=== PATIENT | male | born 1955 | race Caucasian/White ===

== ENCOUNTER 2018-02-05 19:24 | Emergency (ER) | payer OTHER ==
[~2018-02-05] VITALS: Ht 175.3 cm; Wt 56.7 kg
[2018-02-05] MEDS ORDERED: HYDROmorphone 1mg/ml Carpuject IVP ONE ×2 (19:30→21:45)
[2018-02-05] MEDS ORDERED: Isovue-370 150ml vial INJ PRN (19:30)
--- NOTE | 2018-02-05 19:31 | Emergency Room Report ---
History of Present Illness General Chief Complaint: Chest Pain Source: Patient, EMS Present Illness HPI This is 63-year-old male with a history esophageal cancer. He is status post chemotherapy and radiation. He presents with sternal chest pain ongoing for last 4 days. Sharp in nature. Worse with inspiration. Better with rest. No cough. Subjective fever and chills. Pain is 9 out of 10. No relief with his morphine. No cough. No congestion. No diaphoresis or exertional component. Allergies: Coded Allergies: No Known Allergies (Unverified , 02/05/18) Patient History Past Medical History: see triage record, old chart reviewed Past Surgical History: other Pertinent Family History: none Social History: Reports: smoking Immunizations: other Reviewed Nursing Documentation: PMH: Agreed; PSxH: Agreed Review of Systems Eye: Denies: eye pain, blurred vision ENT: Denies: ear pain, nose congestion, throat swelling Respiratory: Denies: cough, shortness of breath Cardiovascular: Reports: chest pain; Denies: palpitations Gastrointestinal: Denies: abdominal pain, diarrhea, nausea, vomiting Musculoskeletal: Denies: back pain, joint pain Skin: Denies: rash Neurological: Denies: headache, numbness Endocrine: Denies: increased thirst, increased urine Hematologic/Lymphatic: Denies: easy bruising All Other Systems: negative except mentioned in HPI Physical Exam Vital Signs Date Time Temp Pulse Resp B/P (MAP) Pulse Ox O2 Delivery O2 Flow Rate FiO2 02/05/18 19:22 99.0 74 18 118/73 100 Room Air vitals unremarkable Sp02 EP Interpretation: reviewed, normal General Appearance: no apparent distress, alert, cachetic, Chronically Ill Head: normocephalic, atraumatic Eyes: bilateral eye PERRL, bilateral eye EOMI ENT: hearing grossly normal, normal pharynx Neck: full range of motion, supple, no meningismus Respiratory: chest non-tender, lungs clear, normal breath sounds, other - Pain with palpation of sternum Cardiovascular #1: regular rate, rhythm, no murmur Gastrointestinal: normal bowel sounds, non tender, no mass, no organomegaly, no bruit, non-distended Musculoskeletal: back normal, gait/station normal, normal range of motion Psychiatric: mood/affect normal Skin: warm/dry Medical Decision Making Diagnostic Impression: Primary Impression: Chest pain Qualified Codes: R07.9 - Chest pain, unspecified Additional Impression: Esophagitis, acute ER Course Patient presents with chest pain. This is more of an esophagitis. Troponin negative. EKG unremarkable. Lungs show no evidence of any PE or infection. He does have fibrosis and emphysema. There is irregular thickening of the distal esophagus with surrounding infiltration. There is debris in the mildly distended esophagus. Patient be admitted versus transfer. I discussed the case with who accepted pt for transfer to [facility]. Lab Results Impression labs unremarkable EKG Diagnostic Results Rate: normal Rhythm: NSR ST Segments: no acute changes Rhythm Strip Diag. Results Rhythm Strip Time: 19:31 EP Interpretation: yes Rate: 70 Rhythm: NSR, no PVC's, no ectopy Last Vital Signs Date Time Temp Pulse Resp B/P (MAP) Pulse Ox O2 Delivery O2 Flow Rate FiO2 02/05/18 19:22 99.0 74 18 118/73 100 Room Air Status: improved Disposition: [facility] Condition: Stable Jayy Morrison MD Feb 05, 2018 19:31
[2018-02-05 20:03] VITALS: BP 124/73
[2018-02-05 20:05] LABS: BASOPHILS % (AUTO) 1.9 % (0.0-2.0); HEMATOCRIT 26.8 % (42.0-52.0); LYMPHOCYTES % (AUTO) 10.1 % (20.0-45.0); MEAN CORPUSCULAR VOLUME 83 FL (80-99); MONOCYTES % (AUTO) 11.4 % (1.0-10.0); NEUTROPHILS % (AUTO) 74.6 % (45.0-75.0); PLATELET COUNT 203 K/UL (150-450); RED BLOOD COUNT 3.23 M/UL (4.70-6.10); RED CELL DISTRIBUTION WIDTH 16.8 % (11.6-14.8); WHITE BLOOD COUNT 4.4 K/UL (4.8-10.8)
--- NOTE | 2018-02-05 20:13 | Diagnostic Imaging Report ---
EXAM: XR Chest, 1 View CLINICAL HISTORY: CP TECHNIQUE: Frontal view of the chest. COMPARISON: No relevant prior studies available. FINDINGS: Lungs: Bilateral pulmonary opacities. Pleural space: Unremarkable. No pneumothorax. Heart: Unremarkable. No cardiomegaly. Mediastinum: Unremarkable. Bones/joints: Probable old right rib fracture. IMPRESSION: Bilateral pulmonary opacities. Could be from edema or pneumonia in the proper clinical setting. There's a broader differential.
[2018-02-05 20:20] LABS: APPEARANCE,URINE CLEAR; BILIRUBIN, URINE NEGATIVE (NEGATIVE); COLOR,URINE PALE YELLOW; GLUCOSE, URINE (UA) NEGATIVE (NEGATIVE); KETONES,URINE NEGATIVE (NEGATIVE); LEUKOCYTE ESTERASE ,URINE NEGATIVE (NEGATIVE); NITRITE,URINE NEGATIVE (NEGATIVE); PH,URINE 7 (4.5-8.0); PROTEIN,URINE NEGATIVE (NEGATIVE); UROBILINOGEN,URINE NORMAL MG/DL (0.0-1.0)
[2018-02-05 20:22] LABS: ANION GAP 9 mmol/L (5-15); BLOOD UREA NITROGEN 19 mg/dL (7-18); CALCIUM 9.3 MG/DL (8.5-10.1); CARBON DIOXIDE 25 MMOL/L (21-32); CHLORIDE 98 MMOL/L (98-107); CREATININE 0.9 MG/DL (0.55-1.30); POTASSIUM 3.8 MMOL/L (3.5-5.1); SODIUM 132 MMOL/L (136-145)
[2018-02-05] MEDS ORDERED: ZOFRAN4 M3 ORAL (20:29)
[2018-02-05] MEDS ORDERED: PROTONIX40 MG ORAL (20:29)
[2018-02-05] MEDS ORDERED: BENADRYL25 MG ORAL (20:29)
[2018-02-05] MEDS ORDERED: ACETAMINOP160 MG/51 ORAL (20:29)
[2018-02-05] MEDS ORDERED: CARVEDILOL3.125 MG ORAL (20:29)
[2018-02-05] MEDS ORDERED: LYRICA75 M1 ORAL (20:29)
[2018-02-05] MEDS ORDERED: COLACE100 MG ORAL (20:29)
[2018-02-05] MEDS ORDERED: MULTIVITAMINS1 EAC2 ORAL (20:29)
[2018-02-05] MEDS ORDERED: NORCO 10-325 T1 EACH ORAL (20:29)
[2018-02-05] MEDS ORDERED: FUROSEMIDE40 MG ORAL (20:29)
[2018-02-05] MEDS ORDERED: MILK OF MA400 MG/51 ORAL (20:29)
[2018-02-05] MEDS ORDERED: mylanta (20:29)
[2018-02-05] MEDS ORDERED: KEPPRA1000 MG ORAL (20:29)
[2018-02-05] MEDS ORDERED: VITAMIN B-1100 MG ORAL (20:29)
[2018-02-05 20:30] VITALS: BP 138/72
[2018-02-05 20:35] LABS: ALANINE AMINOTRANSFERASE 28 U/L (12-78); ALBUMIN 2.7 G/DL (3.4-5.0); ALBUMIN/GLOBULIN RATIO 0.5 (1.0-2.7); ALKALINE PHOSPHATASE 145 U/L (46-116); ASPARTATE AMINO TRANSFERASE 30 U/L (15-37); BILIRUBIN,TOTAL 0.4 MG/DL (0.2-1.0); CKMB 4.3 NG/ML (0.0-3.6); CREATINE KINASE 34 U/L (26-308)
--- NOTE | 2018-02-05 21:15 | Diagnostic Imaging Report ---
EXAM: CT Chest With Intravenous Contrast CLINICAL HISTORY: CP TECHNIQUE: Axial computed tomography images of the chest with intravenous contrast. CTDI is 0.17 + 12.62 + 138.85 + 19.42 mGy and DLP is 810 mGy-cm. One or more of the following dose reduction techniques were used: automated exposure control, adjustment of the mA and/or kV according to patient size, use of iterative reconstruction technique. MIP reconstructed images were created and reviewed. COMPARISON: No relevant prior studies available. FINDINGS: Lungs: No central pulmonary embolus. Pulmonary emphysema and fibrosis. Old bilateral pulmonary nodularity with some dominant nodules in the right lung. Pleural space: Unremarkable. No pneumothorax. No effusion. Heart: No cardiomegaly. No pericardial effusion. Mediastinum: Irregular thickening of the distal esophagus and GE junction with surrounding infiltration. Debris in the mildly distended esophagus. Bones/joints: Old rib fractures. Chronic appearing compression deformity in the lower thoracic spine Soft tissues: Unremarkable. Vasculature: Unremarkable. No thoracic aortic aneurysm. Lymph nodes: No enlarged lymph nodes. Liver: Nodular liver. Stomach and bowel: Gastric distention. Intraperitoneal space: Small amounts of fluid in the peritoneal cavity. Other findings: Old granulomas disease. IMPRESSION: 1. No central pulmonary embolus. 2. Irregular thickening of the distal esophagus and GE junction with surrounding infiltration. Differential includes inflammatory or neoplastic process.
[2018-02-05] MEDS ORDERED: Pantoprazole Inj IVP ONE (21:45)
[2018-02-05 22:00] VITALS: BP 131/68
[2018-02-06] VITALS: BP 129/71
[2018-02-06 02:10] VITALS: BP 129/71
== END 2018-02-06 02:10 | disposition short-term general hospital (02) ==
LOC: EDBD 19:24 → EMR 22:07
DX: R07.9 Chest pain, unspecified (principal); K20.9 Esophagitis, unspecified; F17.200 Nicotine dependence, unspecified, uncomplicated
CPT/HCPCS: 36415; 71045; 71275; 80053; 81003; 82550; 82553; 84484; 85025; 85730; 93005; 96374; 96375; 96376; 99284; C9113; J1170; J2405; Q9967

== ENCOUNTER 2018-03-01 19:09 | Emergency (ER) | payer OTHER ==
[~2018-03-01] VITALS: Ht 172.7 cm; Wt 59.0 kg
[~2018-03-01 19:09] MED LIST: ACETAMINOP160 MG/51 ORAL; BENADRYL25 MG ORAL; CARVEDILOL3.125 MG ORAL; COLACE100 MG ORAL; FUROSEMIDE40 MG ORAL; KEPPRA1000 MG ORAL; LYRICA75 M1 ORAL; MILK OF MA400 MG/51 ORAL; MULTIVITAMINS1 EAC2 ORAL; NORCO 10-325 T1 EACH ORAL; PROTONIX40 MG ORAL; VITAMIN B-1100 MG ORAL; ZOFRAN4 M3 ORAL; mylanta
[2018-03-01] MEDS ORDERED: Isovue-300 100ml vial INJ PRN (19:15)
[2018-03-01] MEDS ORDERED: Morphine Sulfate 4mg/ml Inj (IV/IM USE ONLY) IVP ONE ×2 (19:15→22:15)
[2018-03-01 19:20] VITALS: BP 130/60
--- NOTE | 2018-03-01 19:20 | Emergency Room Report ---
History of Present Illness General Chief Complaint: Abdominal Pain Source: Patient, EMS Present Illness HPI Patient has 2 days of abdominal pain that's been worsening. EMS was summoned. He has history of esophageal cancer, COPD and congestive heart failure. Before EMS arrived is given [place] 5/325. The patient states that the pain is still severe at this time. He denies vomiting or diarrhea. He's extremely constipated and also has not been passing any gas. He denies any previous abdominal surgery. He can't point with a finger the pain is diffuse and there is pressure and aching it's constant. He denies any dysuria. He rates the pain at 7/10, "severe" pressure and aching, constant and diffuse. He states he' s never had pain like this. Denies dysuria. He also has COPD and states he has been coughing. He doesn't describe the phlegm. He has QUIÑONEZ usually and this has not changed. He denies orthopnea. H/O seizures. On medication and no seizures recently. He denies chest pain, rashes, headache. Allergies: Coded Allergies: No Known Allergies (Unverified , 02/05/18) Patient History Past Medical History: see triage record Social History: Denies: smoking - Prior Social History Narrative assisted living Reviewed Nursing Documentation: PMH: Agreed; PSxH: Agreed Nursing Documentation-PMH Hx Cardiac Problems: Yes - CHF, SEPSIS Hx COPD: Yes Hx Cancer: Yes Hx Neurological Problems: Yes - seizures Hx Seizures: Yes Review of Systems All Other Systems: negative except mentioned in HPI Physical Exam Vital Signs Date Time Temp Pulse Resp B/P (MAP) Pulse Ox O2 Delivery O2 Flow Rate FiO2 03/01/18 19:10 97.5 90 16 130/60 97 Nasal Cannula 2.0 Sp02 EP Interpretation: reviewed, normal General Appearance: alert, GCS 15, non-toxic, mild distress, other - Eyes closed Eyes: bilateral eye other - eyes tight shut with pain ENT: moist mucus membranes Neck: full range of motion, supple Respiratory: crackles - Anteriorly, rales Cardiovascular #1: regular rate, rhythm, no edema Cardiovascular #2: 2+ radial (L) Gastrointestinal: abnormal bowel sounds - slightly hyperactive, distended - but soft, guarding, rebound, tenderness - Diffuse Genitourinary: no CVA tenderness Musculoskeletal: digits/nails normal, normal range of motion, no calf tenderness Neurologic: alert, oriented x3, grossly normal Psychiatric: anxious - with pain Skin: other - sallo Medical Decision Making Diagnostic Impression: Primary Impression: Abdominal pain Qualified Codes: R10.84 - Generalized abdominal pain Additional Impressions: Pneumonia Qualified Codes: J18.1 - Lobar pneumonia, unspecified organism Cirrhosis Qualified Codes: K74.60 - Unspecified cirrhosis of liver; R18.8 - Other ascites Ascites Qualified Codes: R18.8 - Other ascites ER Course Patient presents with severe abdominal pain is worsening over the last 2 days. Differential includes perforated viscus, diverticulitis, gastritis, peptic ulcer disease, pancreatitis amongst others. Based on exam suspicion for a surgical pathology is high. Patient will be evaluated with EKG, chest x-ray and CT the abdomen along with labs. Patient will be treated with IV hydration, Zofran and morphine. EKG with normal sinus rhythm rate 75 normal EKG. Chest x-ray with bilateral interstitial wolfe consistent with interstitial edema or fibrosis. Based on the x-ray the bolus is canceled but IV hydration will be continued. CBC with normal WBC, anemia (same as 1 month ago). CMP with renal insufficiency, min elevated glucose. BNP mildly elevated. Initial lactate 2.0. CT abdomen with question of pneumonia. Cirrhosis and ascites. BC ordered and antibiotics. Complex presentation. Consideration for SBP. Improved pain. Not surgical abdomen at this time however, consider surgical consultation. Repeat lactate 1.7. Presented to Dr. Escobar and accepted for transfer. Repeat exam 23:05, soft but distended, no rebound, some guarding. Laboratory Tests Test 03/01/18 19:40 03/01/18 21:35 White Blood Count 9.6 K/UL (4.8-10.8) Red Blood Count 3.49 M/UL (4.70-6.10) L Hemoglobin 9.0 G/DL (14.2-18.0) L Hematocrit 27.9 % (42.0-52.0) L Mean Corpuscular Volume 80 FL (80-99) Mean Corpuscular Hemoglobin 25.8 PG (27.0-31.0) L Mean Corpuscular Hemoglobin Concent 32.3 G/DL (32.0-36.0) Red Cell Distribution Width 17.1 % (11.6-14.8) H Platelet Count 241 K/UL (150-450) Mean Platelet Volume 7.0 FL (6.5-10.1) Neutrophils (%) (Auto) % (45.0-75.0) Lymphocytes (%) (Auto) % (20.0-45.0) Monocytes (%) (Auto) % (1.0-10.0) Eosinophils (%) (Auto) % (0.0-3.0) Basophils (%) (Auto) % (0.0-2.0) Differential Total Cells Counted 100 Neutrophils % (Manual) 91 % (45-75) H Lymphocytes % (Manual) 4 % (20-45) L Monocytes % (Manual) 3 % (1-10) Eosinophils % (Manual) 0 % (0-3) Basophils % (Manual) 0 % (0-2) Band Neutrophils 2 % (0-8) Platelet Estimate Adequate Platelet Morphology Normal Hypochromasia 1+ Anisocytosis 1+ Prothrombin Time 12.1 SEC (9.30-11.50) H Prothrombin Time INR 1.2 (0.9-1.1) H PTT 29 SEC (23-33) Urine Color Pale yellow Urine Appearance Clear Urine pH 5 (4.5-8.0) Urine Specific [place] 1.015 (1.005-1.035) Urine Protein 2+ (NEGATIVE) H Urine Glucose (UA) Negative (NEGATIVE) Urine Ketones Negative (NEGATIVE) Urine Blood 1+ (NEGATIVE) H Urine Nitrite Negative (NEGATIVE) Urine Bilirubin Negative (NEGATIVE) Urine Urobilinogen Normal MG/DL (0.0-1.0) Urine Leukocyte Esterase Negative (NEGATIVE) Urine RBC 2-4 /HPF (0 - 0) H Urine WBC 0-2 /HPF (0 - 0) Urine Squamous Epithelial Cells None /LPF (NONE/OCC) Urine Bacteria Few /HPF (NONE) Sodium Level 136 MMOL/L (136-145) Potassium Level 4.0 MMOL/L (3.5-5.1) Chloride Level 101 MMOL/L (98-107) Carbon Dioxide Level 24 MMOL/L (21-32) Anion Gap 11 mmol/L (5-15) Blood Urea Nitrogen 33 mg/dL (7-18) H Creatinine 1.3 MG/DL (0.55-1.30) Estimate Glomerular Filtration Rate 55.8 mL/min (>60) Glucose Level 132 MG/DL (74-106) H Calcium Level 9.8 MG/DL (8.5-10.1) Total Bilirubin 0.6 MG/DL (0.2-1.0) Aspartate Amino Transferase (AST) 45 U/L (15-37) H Alanine Aminotransferase (ALT) 23 U/L (12-78) Alkaline Phosphatase 421 U/L (46-116) H Total Creatine Kinase 12 U/L (26-308) L Troponin I 0.000 ng/mL (0.000-0.056) Total Protein 8.4 G/DL (6.4-8.2) H Albumin 2.3 G/DL (3.4-5.0) L Globulin 6.1 g/dL Albumin/Globulin Ratio 0.4 (1.0-2.7) L Lipase 70 U/L (73-393) L Lactic Acid Level 2.00 mmol/L (0.4-2.0) Pro-B-Type Natriuretic Peptide 1023 pg/mL (0-125) H EKG Diagnostic Results Rate: normal Rhythm: NSR ST Segments: no acute changes Rhythm Strip Diag. Results EP Interpretation: yes Rhythm: NSR, no PVC's, no ectopy Chest X-Ray Diagnostic Results Chest X-Ray Diagnostic Results : Chest X-Ray Ordered: Yes # of Views/Limited/Complete: 1 View Indication: Other EP Interpretation: Yes Interpretation: no effusion, no pneumothorax, other - Bilateral interstitial wolfe Impression: Other Electronically Signed by: Electronically signed by Ramiro Sykes MD CT/MRI/US Diagnostic Results CT/MRI/US Diagnostic Results : Imaging Test Ordered: abd pelvis Impression Cirrhosis with moderate volume ascites. Enlarged left kidney. No obstruction. Infiltrate trait superimposed on lung base fibrosis probable infection and trace pleural effusions. Last Vital Signs Date Time Temp Pulse Resp B/P (MAP) Pulse Ox O2 Delivery O2 Flow Rate FiO2 03/01/18 23:53 97.5 03/01/18 22:34 62 18 139/74 98 Nasal Cannula 4.0 Status: improved Disposition: [facility] Condition: Serious Ramiro Sykes MD Mar 01, 2018 19:20
[2018-03-01 20:15] LABS: APPEARANCE,URINE CLEAR; BILIRUBIN, URINE NEGATIVE (NEGATIVE); COLOR,URINE PALE YELLOW; GLUCOSE, URINE (UA) NEGATIVE (NEGATIVE); KETONES,URINE NEGATIVE (NEGATIVE); LEUKOCYTE ESTERASE ,URINE NEGATIVE (NEGATIVE); NITRITE,URINE NEGATIVE (NEGATIVE); PH,URINE 5 (4.5-8.0); PROTEIN,URINE 2+ (NEGATIVE); UROBILINOGEN,URINE NORMAL MG/DL (0.0-1.0)
[2018-03-01 20:19] LABS: ANION GAP 11 mmol/L (5-15); BLOOD UREA NITROGEN 33 mg/dL (7-18); CALCIUM 9.8 MG/DL (8.5-10.1); CARBON DIOXIDE 24 MMOL/L (21-32); CHLORIDE 101 MMOL/L (98-107); CREATININE 1.3 MG/DL (0.55-1.30); INR 1.2 (0.9-1.1); SODIUM 136 MMOL/L (136-145)
[2018-03-01 20:21] LABS: HEMATOCRIT 27.9 % (42.0-52.0); MEAN CORPUSCULAR VOLUME 80 FL (80-99); PLATELET COUNT 241 K/UL (150-450); RED BLOOD COUNT 3.49 M/UL (4.70-6.10); RED CELL DISTRIBUTION WIDTH 17.1 % (11.6-14.8); WHITE BLOOD COUNT 9.6 K/UL (4.8-10.8)
--- NOTE | 2018-03-01 20:22 | Diagnostic Imaging Report ---
EXAM: XR Chest, 1 View CLINICAL HISTORY: ABD PAIN TECHNIQUE: Frontal view of the chest. COMPARISON: CT and radiograph of 02/05/18. FINDINGS: Lungs: Interval increase in extensive reticular pulmonary opacities. It would be unusual for chronic interstitial lung disease to progress so rapidly. Question superimposed infection. Pleural space: Unremarkable. No pneumothorax. Heart: Unremarkable. No cardiomegaly. Mediastinum: Unremarkable. Bones/joints: Unremarkable. IMPRESSION: Interval increase in extensive reticular pulmonary opacities. It would be unusual for chronic interstitial lung disease to progress so rapidly. Question superimposed infection.
[2018-03-01 20:23] LABS: ALANINE AMINOTRANSFERASE 23 U/L (12-78); ALBUMIN 2.3 G/DL (3.4-5.0); ALBUMIN/GLOBULIN RATIO 0.4 (1.0-2.7); ALKALINE PHOSPHATASE 421 U/L (46-116); ASPARTATE AMINO TRANSFERASE 45 U/L (15-37); BILIRUBIN,TOTAL 0.6 MG/DL (0.2-1.0); CREATINE KINASE 12 U/L (26-308)
--- NOTE | 2018-03-01 21:03 | Diagnostic Imaging Report ---
EXAM: CT Abdomen and Pelvis With Intravenous Contrast CLINICAL HISTORY: ABD PAIN TECHNIQUE: Axial computed tomography images of the abdomen and pelvis with intravenous contrast. CTDI is 13.14 mGy and DLP is 619 mGy-cm. One or more of the following dose reduction techniques were used: automated exposure control, adjustment of the mA and/or kV according to patient size, use of iterative reconstruction technique. COMPARISON: Chest CT of 02/05/18 FINDINGS: Redemonstrated basilar fibrosis. Component of airspace disease, particularly in the right middle lobe and lingula may reflect superimposed infection. Trace pleural effusions. Cirrhotic liver morphology. Moderate volume ascites. This generalized fluid limits sensitivity for an acute inflammatory process in the abdomen or pelvis. There is no bowel obstruction or perforation. No hydronephrosis. The left kidney is somewhat swollen compared to the right. Correlate for any signs or symptoms of pyelonephritis. Small hiatal hernia with distal esophageal wall thickening. Ascitic fluid distends a indirect left inguinal hernia. Aortoiliac atherosclerosis without aneurysm. No acute fracture. Spinal process fusion device at L5-S1. Lumbar dextrocurvature. No acute fracture. IMPRESSION: Cirrhosis with moderate volume ascites. Left kidney is enlarged compared to the right. Correlate for signs or symptoms of pyelonephritis. No urinary or GI tract obstruction. Infiltrate is superimposed on lung base fibrosis. Consider infection. Trace pleural effusions.
[2018-03-01 21:15] VITALS: BP 117/79
[2018-03-01] MEDS ORDERED: Cefepime HCl 1 GM in D5W 55 ML IVPB ONE (22:15)
[2018-03-01 22:34] VITALS: BP 139/74
[2018-03-02 01:30] VITALS: BP 139/74
== END 2018-03-02 01:30 | disposition short-term general hospital (02) ==
LOC: EDBD 19:09 → EMR 19:27
DX: R10.84 Generalized abdominal pain (principal); J18.1 Lobar pneumonia, unspecified organism; K74.60 Unspecified cirrhosis of liver; R18.8 Other ascites; J44.9 Chronic obstructive pulmonary disease, unspecified; I50.9 Heart failure, unspecified; Z85.01 Personal history of malignant neoplasm of esophagus; G40.909 Epilepsy, unspecified, not intractable, without status epilepticus
CPT/HCPCS: 36415; 71045; 74177; 80053; 81003; 82550; 83605; 83690; 83880; 84484; 85007; 85025; 85610; 85730; 86850; 86900; 86901; 87040; 93005; 96361; 96365; 96367; 96375; 96376; 99285; J0692; J1956; J2270; J2405; Q9967; S0028